=== PATIENT | male | born 1995 | race Caucasian/White ===

== ENCOUNTER 2019-01-15 09:44 | Emergency (ER) | payer BC ==
--- NOTE | 2019-01-15 10:19 | Emergency Department Record ---
History of Present Illness - General Chief complaint: Head Injury Stated complaint: HEAD INJURY Time Seen by Provider: 01/15/19 10:05 Source: Patient, Family (mother in room with pt and assists with hx. ) Mode of Arrival: Ambulatory Limitations: No limitations Travel/Exposure to [facility] Within 21 Days of Symptoms: No - History of Present Illness Initial comments: Pt with mother in ED with complaint of waking at 3 AM today, 7 hours [employer], with dizziness and light headed sensation. No TILLEY, Nausea, fall. No recent illness, cold, fever, vomiting. Denies substance/alcohol use. Hx of frequent headaches thru life. Typical HAs are retro bulbar without change in vision, no N/V, no double vision. Pt denies TILLEY today. Mother states 3 weeks ago he slipped on the ice and hit his head. He had no LOC or nausea. Slept "it offf". Had TILLEY after fall but resolved. Was seen at an Urgent Care but no CT done. Mother is requesting CT for HAs and hex of fall and today the dizziness. There is no hx of dizziness in the past. Just this 7 hour episode that is improving by pt history. MD Complaint: Head pain Onset/Timin -: Hour(s) Mechanism of Injury: Unsure Loss of Consciousness: No Provoking factors: None known - Related Data Home Medications Medication Instructions Recorded Confirmed Last Taken No Home Med [NO HOME MEDS] 01/15/19 01/15/19 Unknown Allergies/Adverse reactions: Allergies Allergy/AdvReac Type Severity Reaction Status Date / Time No Known Allergies Allergy no allergy Unverified 01/15/19 09:57 Travel Screening - Travel/Exposure Within Last 30 Days Have you traveled within the last 30 days?: No - Travel/Exposure Within Last Year Have you traveled outside the [place] in the last year?: No - Additonal Travel Details Have you been exposed to anyone with a communicable illness?: No - Travel Symptoms Symptom Screening: None Review of Systems Constitutional: Denies: Chills, Fever, Night sweats, Weakness Eyes: Denies: Eye discharge, Eye pain, Photophobia, Vision change ENT: Denies: Congestion, Ear pain, Hearing loss, Throat pain Respiratory: Denies: Cough, Hemoptysis Cardiovascular: Denies: Arrhythmia, Chest pain, Palpitations, Syncope Gastrointestinal: Denies: Abdominal pain, Diarrhea, Nausea, Vomiting Musculoskeletal: Denies: Arthralgia, Back pain, Joint swelling Skin: Denies: Bruising, Rash Neurological: Reports: Headache. Denies: Abnormal gait, Numbness, Paresthesias , Seizure, Tingling, Weakness (dizziness today) Psychiatric: Denies: Anxiety, Suicidal thoughts Hematological/Lymphatic: Denies: Anemia Past Medical History - SOCIAL HISTORY Smoking Status: Never smoker Alcohol Use: None Drug Use: None - RESPIRATORY Hx Respiratory Disorders: No - CARDIOVASCULAR Hx Cardio Disorders: No - NEURO Hx Neuro Disorders: No - GI Hx GI Disorders: No - Hx Genitourinary Disorders: No - ENDOCRINE Hx Endocrine Disorders: No - MUSCULOSKELETAL Hx Musculoskeletal Disorders: No - PSYCH Hx Psych Problems: No - HEMATOLOGY/ONCOLOGY Hx Hematology/Oncology Disorders: No Family Medical History Any Significant Family History?: No Physical Exam - General General Appearance: Alert, Oriented x3, Cooperative, No acute distress - Head Head exam: Atraumatic Head exam detail: negative: General tenderness, Tenderness of temporal artery - Eye Eye exam: Normal appearance, PERRL, EOMI. negative: Nystagmus - ENT ENT exam: Mucous membranes moist, Normal external ear exam, Normal orophraynx Ear exam: Other (bilateral cerumen impaction. ) Nasal Exam: Normal inspection Mouth exam: Normal external inspection Teeth exam: Normal inspection Throat exam: Normal inspection - Neck Neck exam: Normal inspection, Full ROM. negative: Lymphadenopathy, Tenderness - Respiratory Respiratory exam: Normal lung sounds bilaterally. negative: Respiratory distress, Stridor, Wheezes - Cardiovascular Cardiovascular Exam: Regular rate, Normal rhythm, Normal heart sounds. negative : Tachycardia Peripheral Pulses: 2+: Radial (R), Radial (L) - GI/Abdominal GI/Abdominal exam: Soft, Normal bowel sounds. negative: Tenderness - Extremities Extremities exam: Normal inspection, Full ROM. negative: Tenderness - Back Back exam: Reports: Normal inspection - Neurological Neurological exam: Alert, CN II-XII intact, Normal gait, Oriented X3, Reflexes normal. negative: Motor sensory deficit - Psychiatric Psychiatric exam: Normal affect, Normal mood - Skin Skin exam: Normal color. negative: Rash Course Vital Signs 01/15/19 09:48 Temperature 97.6 F Pulse Rate 90 Respiratory 18 Rate Blood Pressure 145/86 Pulse Ox 99 - Reevaluation(s) Reevaluation #1: 01/15/19 11:06 CT neg for acute process. Ears cleaned. Improved - home with instructs. Mother and pt comfortable with plan. Procedures - Ear Wax Removal Both Ears Cerumenolytic Used: Other (warmed saline and peroxide ) Ear Canal Irrigated by: Physician Ear Canal Irrigated With: Ear dependency counselor device, Warm saline with H2O2 using syringe/angiocath Ear Canal(s) Curettaged: Plastic loops Results: Re-examined: Cerumen removed completely TM Visible: TM(s) intact, normal appearance Ear Canal: Atraumatic Patient Tolerated Procedure: Good Complications: No problems Disposition Disposition: Discharge Clinical Impression: Dizziness, Cerumen impaction, Ceruminosis Disposition: Home, Self-Care Condition: (1) Good Instructions: Cerumen Impaction (ED), Lightheadedness (ED) Additional Instructions: Do not use Q tips in ears. Increase oral fluids today. Do not drive a car if you feel light headed. Use Benadryl over the counter as directed for mild dizziness. Follow up with your family doctor in 2-3 days. Return to the ED at any time if other concerns or symptoms. Forms: Patient Portal Access Time of Disposition: 11:06 Quality - Quality Measures Quality Measures: N/A - Blood Pressure Screening Does Patient Have Any of the Following: No Blood Pressure Classification: Pre-Hypertensive BP Reading Systolic Measurement: 145 Diastolic Measurement: 86 Screening for High Blood Pressure: < Pre-Hypertensive BP, F/U Documented > [ G8950] Pre-Hypertensive Follow-up Interventions: Follow-up with rescreen every year.
--- NOTE | 2019-01-18 07:11 | CT SCAN REPORT ---
EXAM: CT OF THE HEAD WITHOUT CONTRAST HISTORY: LIGHTHEADEDNESS AND DIZZINESS. INTERMITTENT HEADACHES FOR 5-6 YEARS. FALL APPROXIMATELY ONE MONTH PRIOR. TECHNIQUE: Routine noncontrast CT images of the head were obtained. Comparison: None. FINDINGS: The ventricles, basal cisterns and sulci are of normal size, shape and configuration. No midline shift or mass effect. The jackson white differentiation is well maintained throughout both cerebral hemispheres without evidence for acute ischemia. No intracranial mass or hemorrhage. The paranasal sinuses and mastoid air cells are clear. IMPRESSION: NO ACUTE INTRACRANIAL ABNORMALITY. JOB NUMBER: [id number] [facility], [place]
== END 2019-01-15 11:33 | disposition home or self-care (01) ==
LOC: ER 09:44
DX: H61.23 Impacted cerumen, bilateral (principal); R42 Dizziness and giddiness; R51 Headache; Z91.81 History of falling
CPT/HCPCS: 36416; 69210; 70450; 82948; 99283; 99284

== ENCOUNTER 2019-11-20 13:35 | Emergency (ER) | payer BC ==
[2019-11-20] MEDS ORDERED: PROPARACAINE HCL OPTH 15ML BTL OPTH ONE ×2 (13:46→13:47)
--- NOTE | 2019-11-20 14:01 | Emergency Department Record ---
History of Present Illness - General Chief complaint: Eye Problem Stated complaint: RT EYE PUFFY/IRRITATED Time Seen by Provider: 11/20/19 13:43 Source: Patient Mode of Arrival: Ambulatory Limitations: No limitations - History of Present Illness Initial comments: The patient is here due to walking up 5 hours ago with his R eye slightly red and irritated. He does wear contacts but did not sleep in them. There is no eye pain, drainage or discharge. The patient also denies any visual changes or any recent URI, ST, or cough. MD chief complaint: Eye redness Onset/Timin -: Hour(s) Location: Right eye Place: Home Eye Symptoms: Redness, Other Consistency: Constant Associated Symptoms: None Treatments Prior to Arrival: None - Related Data Hx Tetanus Toxoid Vaccination: Yes Year of Tetanus Vaccination: 2017 Allergies Allergy/AdvReac Type Severity Reaction Status Date / Time No Known Allergies Allergy no allergy Unverified 01/15/19 09:57 Travel Screening - Travel/Exposure Within Last 30 Days Have you traveled within the last 30 days?: No Review of Systems Constitutional: Denies: Chills, Fever Past Medical History - SOCIAL HISTORY Smoking Status: Never smoker - RESPIRATORY Hx Respiratory Disorders: No - CARDIOVASCULAR Hx Cardio Disorders: No - NEURO Hx Neuro Disorders: No - GI Hx GI Disorders: No - Hx Genitourinary Disorders: No - ENDOCRINE Hx Endocrine Disorders: No - MUSCULOSKELETAL Hx Musculoskeletal Disorders: No - PSYCH Hx Psych Problems: No - HEMATOLOGY/ONCOLOGY Hx Hematology/Oncology Disorders: No Family Medical History Any Significant Family History?: No Physical Exam - General General Appearance: Alert, Oriented x3, Cooperative, No acute distress - Head Head exam: Atraumatic, Normocephalic - Eye Eye exam: PERRL, Conjunctival injection (Trace R eye. Clear L eye.), EOMI, Other (The R cornea is clear with no flourscein uptake.). negative: Normal appearance, Periorbital swelling, Periorbital tenderness - ENT Nasal Exam: Normal inspection Throat exam: Normal inspection. negative: Tonsillar erythema, Tonsillar exudate Course Vital Signs 11/20/19 13:40 Temperature 97.7 F Pulse Rate 75 Respiratory 20 Rate Blood Pressure 131/83 Pulse Ox 99 - Reevaluation(s) Reevaluation #1: I did discuss the need to use an Abx drop due to the contact lens use. He is to keep the contacts out for at least a week and clean them very well. He also is to see his eye doctor this week for recheck. 11/20/19 13:55 Disposition Disposition: Discharge Clinical Impression: Acute atopic conjunctivitis of right eye Disposition: Home, Self-Care Condition: (2) Stable Instructions: Conjunctivitis (ED) Additional Instructions: Please use the eye drops as directed and please see your eye doctor later this week for recheck. Clean your contact lenses very well and if disposable discard. Return to the ER for any worsening issues. Forms: Patient Portal Access Time of Disposition: 14:01 Quality - Quality Measures Quality Measures: N/A - Blood Pressure Screening View Details: Yes Does Patient Have Any of the Following: No Blood Pressure Classification: Pre-Hypertensive BP Reading Systolic Measurement: 131 Diastolic Measurement: 83 Screening for High Blood Pressure: < Pre-Hypertensive BP, F/U Documented > [G8950] Pre-Hypertensive Follow-up Interventions: Referral to alternative/primary care provider.
== END 2019-11-20 14:14 | disposition home or self-care (01) ==
LOC: ER 13:35
DX: H10.11 Acute atopic conjunctivitis, right eye (principal)
CPT/HCPCS: 99283